=== PATIENT | male | born 1955 | race African-American/Black ===

== ENCOUNTER 2020-11-01 13:12 | Emergency (ER) | payer OTHER, SELFPAY ==
[2020-11-01 13:23] VITALS: BP 160/83; PULSE 80; RESP 20; TEMP 36.9; O2SAT 99
[2020-11-01 13:25] VITALS: BP 160/83; PULSE 75; RESP 20; TEMP 36.9; O2SAT 99
--- NOTE | 2020-11-01 14:17 | ED.EYEPROB ---
HPI - Eye Problem General Chief complaint: Eye Problems Stated complaint: eye injury Source: patient and RN notes reviewed Limitations: no limitations History of Present Illness HPI Narrative: The patient, on minimal medications yet without regular doctor, presents with blurred vision. 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 His eye history is remarkable for that he does not wear contacts or glasses regularly, and he has childhood poor vision in his right eye limited to count fingers . No discharge, photophobia, redness, symptom progression, pain; he also has diet-controlled diabetes and hypertension. Patient advised will be given work release to see eye doctor, before the weekend. Related Data Allergies Allergy/AdvReac Type Severity Reaction Status Date / Time Penicillins Allergy Unknown JERKING Verified 07/20/15 10:27 MOVEMENT Review of Systems Review of Systems: Narrative: General/Constitutional: No weight loss,fever Eyes: N0: Redness,discharge Ears/Nose/Throat: No: Epistaxis,ear discharge Respiratory: Denies: Hemoptysis Gastrointestinal: No Vomiting, Bleeding-rectal Skin: No Lumps, eruption Neurologic: No Focal Weakness,Sz Hematologic: Denies: Petechiae/Purpura Psychiatric: No: Suicida ideationl All Other Systems: Reviewed and Negative PMFSH Comments At time of signature, agree with nursing past medical, surgical, social and family history. There is no relevant family history pertinent to the presenting complaint Exam Narrative: Exam Narrative: General Appearance: Well appearing, Well nourished, No distress EYE-left : Va 20/40 PERRLA ,[id number] normal, EOMI , Lens-early cataract, Normal corneas anterior chamber deep), No conjunctiva injection Ears: External ear normal, Auditory canal normal Nose: Normal nose, Nares clear Mouth/Throat: Normal appearing, Normal lips Neck: Supple, No adenopathy Respiratory: Airway patent, No respiratory distress Skin: Warm, Dry Neurological: A&O x3, CN II-X intact Psychiatric: Normal mood, Normal affect Course Vital Signs Vital signs: Vital Signs Temperature 98.5 F 11/01/20 13:23 Pulse Rate 80 11/01/20 13:23 Respiratory Rate 20 11/01/20 13:23 Blood Pressure 160/83 H 11/01/20 13:23 Pulse Oximetry 99 11/01/20 13:23 Temperature 98.5 F 11/01/20 13:25 Pulse Rate 75 11/01/20 13:25 Respiratory Rate 20 11/01/20 13:25 Blood Pressure 166/95 H 11/01/20 14:39 Pulse Oximetry 99 11/01/20 13:25 MDM - Eye Problem Lab Data Labs: Lab Results 11/01/20 Range/Units 14:24 POC Capillary Glucose 124 H (65-105) mg/dl Discharge Plan Discharge Clinical Impression: Blurred vision, Elevated BP without diagnosis of hypertension, History of diet-controlled diabetes Patient Disposition: Home, Self-Care Condition: Stable Instructions: Hypertension (ED), Blurred Vision (ED) Additional Instructions: See both eye doctor and PMD and to follow-up Prescriptions: New amlodipine [Norvasc] 5 mg tablet 5 mg PO DAILY Qty: 30 RF: 2 bacitracin-polymyxin B 500-10,000 unit/gram ointment 1 applic LEFT EYE HS 7 Days Qty: 3.5 RF: 0 Follow-up/Referrals: UNKNOWN,DOCTOR [Primary Care Provider] -
[2020-11-01 14:27] LABS: Glucose Point of Care 124 mg/dl (65-105)
[2020-11-01 14:39] VITALS: BP 166/95
== END 2020-11-01 14:39 | disposition home or self-care (01) ==
PROVIDERS: Emergency Provider Emergency Medicine
DX: H53.8 Other visual disturbances (principal); I10 Essential (primary) hypertension; E11.9 Type 2 diabetes mellitus without complications; J45.909 Unspecified asthma, uncomplicated
CPT/HCPCS: 82948; 99213; G0463

== ENCOUNTER 2021-06-04 12:36 | Emergency (ER) | payer OTHER, SELFPAY ==
[2021-06-04 12:38] VITALS: BP 205/121; PULSE 117; RESP 16; TEMP 36.4; O2SAT 98
--- NOTE | 2021-06-04 12:50 | ED.GENADULT ---
HPI - General Adult General Chief complaint: Unspecified Stated complaint: HIGH BLOOD PRESSURE Time Seen by Provider: 06/04/21 12:38 Source: patient Mode of arrival: ambulatory Limitations: no limitations History of Present Illness HPI narrative: 65-year-old male presents to [facility] with complaints of elevated blood pressure. Patient reports that he quit taking his blood pressure medication a couple months ago and attempted to eat garlic and stop drinking alcohol. Patient reports that a friend checked his blood pressure last night and it was 206/112. Patient denies headache, dizziness, blurred vision, chest pain, shortness of breath, fever, bodies, chills, nausea or vomiting. Patient is unsure of the name of the blood pressure medication but reports that he did pickle solution maker his blood pressure medication this morning from local pharmacy and restarted it. Patient is requesting a work note to return back to work as he missed work yesterday as he is had difficulty sleeping the past few days Relieving factors: none Exacerbating factors: none Associated symptoms: denies other symptoms Treatments prior to arrival: none Related Data Allergies Allergy/AdvReac Type Severity Reaction Status Date / Time Penicillins Allergy Unknown JERKING Verified 01/29/21 09:32 MOVEMENT Review of Systems Constitutional: Constitutional: Denies fever(s), Denies headache(s) and Denies weakness Eyes: Eyes: Denies change in vision Cardiovascular: Cardiovascular: Denies chest pain, Denies chest pain at rest, Denies chest pain with activity, Denies syncope, Denies rapid heart rate, Denies pedal edema, Denies edema, Denies irregular heart rhythm and Denies claudication Comments: Elevated blood pressure Respiratory: Respiratory: Denies chest congestion, Denies cough and Denies dyspnea Gastrointestinal: Gastrointestinal: Denies abdominal pain Integumentary/Breasts: Skin/Breast: Denies rash Neurologic: Denies vertigo and Denies dizziness Psychiatric: Psychiatric: Denies anxiety and Denies depression Hematologic/Lymphatic: Hematologic/Lymphatic: Denies lymphadenopathy [facility] Past Medical History Medical History HTN (hypertension) Family History Family History Father Family history of coronary artery disease Social History Social History Smoking status: Former smoker Tobacco type: cigars Second hand tobacco smoke exposure: Yes Smoking end date: 04/27/09 Alcohol intake: never Substance use: never Substance use type: does not use Gender identity (if verbalized by the patient): Male Sexual Orientation (if Verbalized by the Patient): Straight or Heterosexual Comments At time of signature, I agree with nursing past medical, surgical, social and family history. There is no relevant family history pertinent to the presenting complaint. Exam Const: General: cooperative, healthy appearing, comfortable, no acute distress, well developed, alert and awake HENMT: Head: normal to inspection Ears: hearing grossly normal bilaterally General nose exam: Normal external nose present Face and sinus: normal facial exam Eyes: General: appearance normal, both eyes and all related structures Neck: Neck: normal visual inspection and full ROM Resp: Effort & Inspection: normal respiratory effort, able to speak in complete sentences, no audible wheezes and no cough Cardio: Jugular venous distension: no JVD Rate: tachycardic Rhythm: regular rhythm Skin: General skin exam: normal color and no rashes or lesions noted Neuro: General: oriented to person, oriented to place, oriented to time, patient oriented x3, gait normal and moves all extremities Extrem: General: normal to inspection and full ROM Psych: Appearance: grossly normal and well kempt Speech and movement: Normal speech
== END 2021-06-04 12:58 | disposition short-term general hospital (02) ==
PROVIDERS: Emergency Provider Nurse Practitioner Family; PCP Family Medicine
DX: I10 Essential (primary) hypertension (principal); Z87.891 Personal history of nicotine dependence
CPT/HCPCS: 99212; G0463

== ENCOUNTER 2021-06-04 14:09 | Emergency (ER) | payer OTHER, SELFPAY ==
[2021-06-04] VITALS (19 sets, daily range): BP systolic 150–219; BP diastolic 93–123; PULSE 76–123; RESP 16–27; TEMP 36.7; O2SAT 99–100
--- NOTE | ~2021-06-04 | CT_ITS ---
EXAMINATION:CT diagnostic chest wo con DATE: 06/04/2021 17:15 INDICATION: Lung nodule. TECHNIQUE: Computed tomography (CT) of the chest was performed without intravenous contrast. Automate d exposure control and iterative reconstruction technique were employed. The dose-length product (DLP ) was 277.88 mGy-cm. COMPARISON: Chest single view 06/04/2021 FINDINGS: The lungs demonstrate mild atelectasis. There is mild scarring at the lung apices. There is a 4 mm nodule at minor fissure, likely benign. There is a 2 mm nodule in left lower lobe, likely mynor ign. No pleural effusion. The heart size is normal. No pericardial effusion. There are cysts in the l iver measuring up to 6 mm. There is severe cervical and thoracic spondylosis. There is levoscoliosis of upper thoracic spine. IMPRESSION: 1. No evidence of malignancy. Reviewed, dictated and finalized at location A. K SALES REPRESENTATIVE
--- NOTE | ~2021-06-04 | XR_ITS ---
EXAMINATION: XR chest 1V portable DATE: 06/04/2021 16:57 INDICATION: Chest pain. TECHNIQUE: A single frontal view of the chest was obtained. COMPARISON: Chest 2 views 05/10/2014 FINDINGS: There is a 1.5 cm nodule in right lower lung zone. There is a 1.4 cm nodule in right upper lung zone. No pleural effusion or pneumothorax. The heart size is normal. IMPRESSION: 1. New pulmonary nodules suspicious for malignancy. Noncontrast chest CT is recommended. I called thi s result to Dr. Gomez. Reviewed, dictated and finalized at location A. OMER ENERGY SPECIALIST IMPRESSION: 1. New pulmonary nodules suspicious for malignancy. Noncontrast chest CT is rec ommended. I called this result to Dr. Gomez.
--- NOTE | 2021-06-04 15:13 | ECG_ITS ---
Measurements Intervals Laura Rate: 111 P: 62 FL: 152 QRS: 59 QRSD: 85 T: 51 QT: 313 QTc: 426 Interpretive Statements SINUS TACHYCARDIA VOLTAGE CRITERIA FOR LVH MINIMAL Q WAVES- INFERIOR LEADS BORDERLINE T WAVE ABNORMALITY- LATERAL LEADS ABNORMAL ECG Electronically Signed On 06-04-2021 16:43:01 DIRECT SUPPORT STAFF by Abdiaziz Wray D.O.
--- NOTE | 2021-06-04 15:25 | ED.GENADULT ---
HPI - General Adult General Chief complaint: Recheck/Abnormal Lab/Rx Stated complaint: High BP Time Seen by Provider: 06/04/21 15:13 Source: RN notes reviewed History of Present Illness HPI narrative: Patient presents emergency department from urgent care for hypertension. Patient states he has a history of hypertension is post be on amlodipine he states he been off his medicine for the past 2 months however he filled it this morning and did take 1 this morning states he been at a friend's house and he checks his blood pressure on their machine and a reading 260/120 and he gone to the urgent care at that time because of this states he has had no headaches dizziness chest pain shortness of breath nausea vomiting numbness tingling or any other symptoms Related Data Allergies Allergy/AdvReac Type Severity Reaction Status Date / Time Penicillins Allergy Unknown JERKING Verified 06/04/21 15:07 MOVEMENT Review of Systems Review of Systems: Gen.: Denies fevers or chills Eyes: Denies eye pain or visual change ENT: Denies congestion Respiratory: Denies shortness of breath or cough CV: Denies chest pain or palpitations GI: Denies abdominal pain nausea, emesis or diarrhea Musculoskeletal: Denies back pain or muscle pain Neuro: Denies numbness, tingling, weakness or focal weakness Skin: Denies rash Except as documented, all other systems reviewed and negative [facility] Past Medical History Medical History HTN (hypertension) Family History Family History Father Family history of coronary artery disease Social History Social History Smoking status: Former smoker Tobacco type: cigars Second hand tobacco smoke exposure: Yes Smoking end date: 04/27/09 Alcohol intake: never Substance use: never Substance use type: does not use Gender identity (if verbalized by the patient): Male Sexual Orientation (if Verbalized by the Patient): Straight or Heterosexual Exam Narrative: APPEARANCE: No acute distress, nontoxic, resting in bed EYES: EOMI HEENT: Normocephalic, atraumatic, OMM RESPIRATORY: No respiratory distress Clear to auscultation bilaterally with no rhonchi wheezing or rales. CARDIOVASCULAR: Regular rate and rhythm without murmurs rubs or gallops. ABDOMINAL: Soft, nontender, nondistended, no rebound or guarding MUSCULOSKELETAl: Moves all extremities. No clubbing, cyanosis or edema. NEURO: Awake and alert. Following commands, speech normal, no focal deficits SKIN:: Warm, dry. No rashes lesions or abrasions PSYCHIATRIC: Normal affect/mood, Course Course Emergency Course: Called discussed with Dr. Granados. At this time request patient have metoprolol 25 mg twice daily added to current amlodipine dose agrees with plan for discharge to follow-up as an outpatient Discussed with patient results of workup and diagnosis. Discussed need for follow-up with primary care, proper use of medication, and reasons to return to the emergency department. Patient understands and agrees to current treatment plan Vital Signs Vital signs: Vital Signs Temperature 98.1 F 06/04/21 14:17 Pulse Rate 122 H 06/04/21 14:17 Respiratory Rate 16 06/04/21 14:17 Blood Pressure 219/109 H 06/04/21 14:17 Pulse Oximetry 100 06/04/21 14:17 Temperature 98.1 F 06/04/21 14:17 Pulse Rate 101 H 06/04/21 18:46 Respiratory Rate 20 06/04/21 18:46 Blood Pressure 212/123 H 06/04/21 18:46 Pulse Oximetry 100 06/04/21 18:46 Medical Decision Making Vital Signs Vital Signs: Vital Signs Temperature 98.1 F 06/04/21 14:17 Pulse Rate 122 H 06/04/21 14:17 Respiratory Rate 16 06/04/21 14:17 Blood Pressure 219/109 H 06/04/21 14:17 Pulse Oximetry 100 06/04/21 14:17 Temperature 98.1 F 06/04/21 14:17 Pulse Rate 101 H 06/04/21 18:46 Respiratory Ra
[2021-06-04] MEDS: SODIUM CHLORIDE 0.9% IV 1,000 ML 999 ML IV CONT (16:46)
[2021-06-04 16:59] LABS: Basophils Absolute Auto 0.1 K/mm3 (0.0-0.1); Basophils Percent Auto 0.9 % (0.2-1.2); Eosinophils Percent Auto 0.2 % (0-4.4); Hematocrit 49.2 % (42.0-52.0); Hemoglobin 16.7 g/dL (14.0-18.0); Immature Granulocyte Absolute 0.02 K/mm3 (0.00-0.031); Immature Granulocyte Percent A 0.2 % (0-0.5); Lymphocytes Absolute Auto 1.26 K/mm3 (0.9-3.2); Lymphocytes Percent Auto 15.7 % (18.3-44.2); Mean Corpuscular HGB Conc 33.9 g/dl (32-36); Mean Corpuscular Hemoglobin 32.2 pg (26-34); Mean Platelet Volume 10.5 fl (7.4-10.4); Monocytes Absolute Auto 0.8 K/mm3 (0.1-0.6); Monocytes Percent Auto 10.5 % (2.6-8.5); Neutrophils Absolute Auto 5.8 K/mm3 (1.3-6.7); Neutrophils Percent Auto 72.5 % (45.5-73.1); Platelet Count Result 239 k/mm3 (150-375); Red Blood Count 5.18 M/mm3 (4.6-6.20); Red Cell Distribution Width 13.8 % (11.5-14.5)
[2021-06-04 17:03] LABS: Add Urine Microscopic? YES; Appearance Urine Clear (Clear); Bilirubin Urine Negative (Negative); Blood Urine Negative (Negative); Color Urine Colorless (Yellow); Glucose Urine UA 1+ mg/dL (Negative); Ketones Urine Negative (Negative); Leukocyte Esterase Ur Negative LEU/UL (Negative); Mucus Urine Rare /lpf; Nitrate Urine Negative (Negative); Protein Urine Negative (Negative); RBC Urine 0-2 /hpf (0-2); Urobilinogen Urine Negative mg/dL (<2.0); WBC Urine 0-3 /hpf
[2021-06-04 17:31] LABS: Specific Grav Ur 1.002 (1.001-1.035)
[2021-06-04 18:12] LABS: Alanine Aminotransferase 21 U/L (4-50); Albumin Level 4.4 g/dL (3.5-5.1); Alkaline Phosphatase 90 U/L (38-126); Anion Gap 9 mmol/L (8-16); Aspartate Amino Transferase 52 U/L (17-59); Bilirubin,Total 0.6 mg/dL (0.2-1.3); Blood Urea Nitrogen 11 mg/dL (9-20); Calcium 9.1 mg/dL (8.4-10.2); Carbon Dioxide 27 mmol/L (22-30); Chloride 100 mmol/L (98-107); Estimated CRCL calculation 79 ml/min; Estimated Glomerular Filt Rate > 60; Glucose 94 mg/dL (65-110); Potassium 3.8 mmol/L (3.4-5.0); Sodium 136 mmol/L (137-145)
[2021-06-04] MEDS: METOPROLOL TARTRATE 25 MG TABLET PO (18:46)
== END 2021-06-04 20:11 | disposition home or self-care (01) ==
PROVIDERS: Emergency Provider Emergency Medicine; PCP Family Medicine
DX: I10 Essential (primary) hypertension (principal); Z87.891 Personal history of nicotine dependence; R00.0 Tachycardia, unspecified; R94.31 Abnormal electrocardiogram [ECG] [EKG]; R91.8 Other nonspecific abnormal finding of lung field
CPT/HCPCS: 36415; 71045; 71250; 80053; 81001; 85025; 93005; 96360; 99284; A9270; J7030

== ENCOUNTER 2021-07-18 14:05 | Emergency (ER) | payer OTHER, SELFPAY ==
[2021-07-18 14:12] VITALS: BP 159/93; PULSE 105; RESP 24; TEMP 37.5; O2SAT 96
--- NOTE | 2021-07-18 14:12 | ED.GENADULT ---
HPI - General Adult General Chief complaint: Recheck/Abnormal Lab/Rx Stated complaint: High blood pressure Time Seen by Provider: 07/18/21 14:16 Mode of arrival: ambulatory Limitations: no limitations History of Present Illness HPI narrative: 65-year-old male presents with concern for medication refill. Reports he is out of his blood pressure medications. Reports he was seen here in May for high blood pressure and went to the ER. Reports he has been out of his blood pressure medication for approximately 3 days. He reports he needs to follow-up with his primary care doctor. He does have a primary care doctor. He denies any symptoms or concerns at this time. Denies headache, confusion, weakness to any extremity, chest pain, shortness of breath, swelling. MD complaint: Medication refill Related Data Allergies Allergy/AdvReac Type Severity Reaction Status Date / Time Penicillins Allergy Unknown JERKING Verified 07/18/21 14:11 MOVEMENT Review of Systems Review of Systems: CONSTITUTIONAL: Denies malaise, chills, sweats, or fever. CARDIOVASCULAR: Denies chest pain, palpitations, or edema. RESPIRATORY: Denies cough or dyspnea. NEUROLOGIC: Denies numbness, weakness, or headache. All systems reviewed & are unremarkable except as noted in HPI and below PMFSH Past Medical History Medical History HTN (hypertension) Family History Family History Father Family history of coronary artery disease Social History Social History Smoking status: Former smoker Tobacco type: cigars Second hand tobacco smoke exposure: Yes Smoking end date: 04/27/09 Alcohol intake: never Substance use: never Substance use type: does not use Gender identity (if verbalized by the patient): Male Sexual Orientation (if Verbalized by the Patient): Straight or Heterosexual Comments At time of signature, agree with nursing past medical, surgical, social and family history. There is no relevant family history pertinent to the presenting complaint Exam Narrative: GENERAL: Well-appearing, well-nourished, and in no acute distress. HEAD: Normocephalic EYES: PERRLA, sclera clear ENT: Mucous membranes moist. NECK: Supple. CHEST: No respiratory distress. Speaks in full sentences. HEART: Regular rate and rhythm. SKIN: Warm, dry, no visible rash. NEURO: Alert and oriented x3. PSYCH: Normal mood and affect Course Course Emergency Course: Patient is aware of diagnosis, understands and agrees to treatment plan. Anticipatory guidance given. Patient agrees to follow-up as directed and is aware of reasons to seek care at the emergency department. Portions of this record may have been created with voice recognition software Level of Care: Express Care Visit Vital Signs Vital signs: Reviewed. Medical Decision Making MDM Narrative Medical decision making narrative: Exam findings show no acute concerns or changes; patient is non-toxic appearing and is in no distress. Patient is appropriate for outpatient treatment and follow-up. Critical Care Time Critical Care Time Critical Care Time: No Discharge Plan Discharge Clinical Impression: Encounter for medication refill Patient Disposition: Home, Self-Care Condition: Stable Instructions: Hypertension (ED) Additional Instructions: You have an appointment with Dr. Markham on July 30. Please call his office to confirm what time the appointment is. Your blood pressure medication has been refilled pending that appointment, you need to follow-up with Dr. Amaya for future refills of your medicine. You have any urgent concerns or new symptoms please go to the emerge room. Prescriptions: New amlodipine 5 mg tablet 5 mg PO DAILY Qty: 30 RF: 0 metoprolol tartrate 25 mg tablet 25 mg PO BID Qty: 60 RF: 0
== END 2021-07-18 14:42 | disposition home or self-care (01) ==
PROVIDERS: Emergency Provider Nurse Practitioner
DX: I10 Essential (primary) hypertension (principal); Z87.891 Personal history of nicotine dependence
CPT/HCPCS: 99211; G0463

== ENCOUNTER 2021-08-29 10:07 | Emergency (ER) | payer OTHER, SELFPAY ==
[2021-08-29 10:13] VITALS: BP 173/94; PULSE 113; RESP 20; TEMP 36.4; O2SAT 97
--- NOTE | 2021-08-29 10:13 | ED.URI ---
HPI - URI/Sore Throat General Chief Complaint: Upper Respiratory Infection Stated Complaint: cough,high blood pressure Time Seen by Provider: 08/29/21 10:15 Source: patient, RN notes reviewed and old records reviewed Mode of arrival: ambulatory Limitations: no limitations History of Present Illness HPI Narrative: 65-year-old male who presents to [facility] care with complaints of some cough and nasal drainage lately, denies any fevers, chills or sweats. Patient reports that he has not noted any shortness of breath or any wheezing and has not taken anything over the counter for his complaint. Patient reports that he missed his last appointment with his PCP and he is of need for his blood pressure medication refill. Patient reports that he doesn't have any body aches, has had COVID vaccinations and Booster. Patient reports that he does not use tobacco or use any street drugs,admits to alcohol consumption 3X week. MD elicited complaint: cough and other (needs hypertension medication refill) Related Data Allergies Allergy/AdvReac Type Severity Reaction Status Date / Time Penicillins Allergy Unknown JERKING Verified 08/29/21 10:12 MOVEMENT Review of Systems Review of Systems: CONSTITUTIONAL: Denies fever, chills, or sweats. EYES: Denies visual changes, redness, or discharge. ENT: positive for rhinorrhea, congestion, no sore throat, or otalgia. CARDIOVASCULAR: Denies chest pain, palpitations, or edema. RESPIRATORY: Positive for cough denies any dyspnea, positive for history of asthma GASTROINTESTINAL: Denies abdominal pain, nausea, vomiting, or diarrhea. GENITOURINARY: Denies dysuria or hematuria. SKIN: Denies rash or itching. MUSCULOSKELETAL: Denies back pain, joint pain, or myalgia. NEUROLOGIC: Denies headache, numbness, or weakness. PSYCHIATRIC: Denies anxiety or depression. All systems reviewed & are unremarkable except as noted in HPI and below [facility] Past Medical History Medical History (Updated 08/29/21 @ 13:26 by Janice Quezada NP) Asthma HTN (hypertension) Family History Family History Father Family history of coronary artery disease Social History Social History (Updated 08/29/21 @ 13:26 by Janice Quezada NP) Smoking status: Former smoker Tobacco type: cigars Second hand tobacco smoke exposure: Yes Smoking end date: 04/27/09 Alcohol intake: current Alcohol use details: 3x per week Substance use: never Substance use type: does not use Gender identity (if verbalized by the patient): Male Sexual Orientation (if Verbalized by the Patient): Straight or Heterosexual Comments At time of signature, agree with nursing past medical, surgical, social and family history. There is no relevant family history pertinent to the presenting complaint Exam Narrative: GENERAL: Well-appearing, well-nourished, and in no acute distress. HEAD: Normocephalic, atraumatic. EYES: PERRLA and EOMI. ENT: Nares red with clear rhinorrhea no epistaxis. Mucous membranes moist.TM's normal with good light reflex,Throat with mild redness no lesions or exudates or any tonsil enlargement. NECK: Supple.no lymphadenopathy CHEST: Decreased to auscultation. No respiratory distress.dry cough noted, SAO2 97% on room air. HEART: Regular rate and rhythm. No murmur heard. Normal peripheral pulses. ABDOMEN: Soft, nontender, nondistended, normal active bowel sounds. EXTREMITIES: Normal range of motion. No edema. SKIN: Warm, dry, no rash. NEURO: No focal deficits. Alert and oriented x3. Course Course Level of Care: Express Care Visit Vital Signs Vital signs: Vital Signs Temperature 36.4 C 08/29/21 10:13 Pulse Rate 113 H 08/29/21 10:13 Respiratory Rate 08/29/21 10:13 Blood Pressure 173/94 H 08/29/21 10:13 Pulse Oximetry 97 08/29/21 10:13 Temperature 36.4 C 08/29/21 10:13 Pulse Rate 113 H 08/29/21 10:13 Respiratory Rate 08/29/21 10:13 Bloo
== END 2021-08-29 10:54 | disposition home or self-care (01) ==
PROVIDERS: Emergency Provider Registered Nurse; PCP Family Medicine
DX: J06.9 Acute upper respiratory infection, unspecified (principal); I10 Essential (primary) hypertension; J45.909 Unspecified asthma, uncomplicated; Z76.0 Encounter for issue of repeat prescription; Z87.891 Personal history of nicotine dependence
CPT/HCPCS: 99213; G0463

== ENCOUNTER 2021-09-16 12:49 | Emergency (ER) | payer OTHER, SELFPAY ==
--- NOTE | ~2021-09-16 | XR_ITS ---
EXAMINATION: XR knee RT 3V DATE: 09/16/2021 13:40 INDICATION: Right knee pain. Fall. TECHNIQUE: 3 views of right knee were obtained. COMPARISON: Right knee radiographs 11/16/2010 FINDINGS: Bone alignment is normal. No fracture. There is mild tricompartmental osteoarthritis. No kn ee joint effusion. IMPRESSION: 1. Mild right knee osteoarthritis. Reviewed, dictated and finalized at location A.
[2021-09-16 13:03] VITALS: BP 121/76; PULSE 68; RESP 16; TEMP 35.8; O2SAT 100
--- NOTE | 2021-09-16 13:34 | ED.LOWEXIN ---
HPI - Extremity Injury (Lower) General Chief Complaint: Extremity Injury, Lower Stated Complaint: fall at work, Time Seen by Provider: 09/16/21 13:50 Source: patient and RN notes reviewed Mode of arrival: ambulatory Limitations: no limitations History of Present Illness HPI Narrative: 65-year-old male presents with concern for knee pain after falling at work on September 10. He reports right knee pain with palpation, denies pain worsening with weightbearing. Denies pain worsening with range of motion. He denies swelling, open skin, bruising. He denies any history of knee pain or injury. He denies intervention. He would like to be cleared to return back to work. MD complaint: knee injury Related Data Allergies Allergy/AdvReac Type Severity Reaction Status Date / Time Penicillins Allergy Unknown JERKING Verified 09/16/21 13:16 MOVEMENT Review of Systems Review of Systems: CONSTITUTIONAL: Denies malaise, chills, sweats, or fever. SKIN: Denies rash or itching, open skin, laceration, abrasion, redness, warmth, swelling. MUSCULOSKELETAL: Reports left knee tenderness NEUROLOGIC: Denies numbness, weakness All systems reviewed & are unremarkable except as noted in HPI and below PMFSH Past Medical History Medical History (Updated 09/16/21 @ 14:02 by Pao Lancaster NP) Asthma HTN (hypertension) Family History Family History Father Family history of coronary artery disease Social History Social History (Updated 08/29/21 @ 13:26 by Janice Quezada NP) Smoking status: Former smoker Tobacco type: cigars Second hand tobacco smoke exposure: Yes Smoking end date: 04/27/09 Alcohol intake: current Alcohol use details: 3x per week Substance use: never Substance use type: does not use Gender identity (if verbalized by the patient): Male Sexual Orientation (if Verbalized by the Patient): Straight or Heterosexual Comments At time of signature, agree with nursing past medical, surgical, social and family history. There is no relevant family history pertinent to the presenting complaint Exam Narrative: GENERAL: Well-appearing, well-nourished, and in no acute distress. HEAD: Normocephalic, atraumatic. EYES: PERRLA, conjunctivae clear NECK: Supple. CHEST: Speaks in full sentences. No respiratory distress. HEART: Regular rate and rhythm. Normal and equal peripheral pulses. EXTREMITIES: Left knee, lower leg have normal strength and sensation, normal range of motion. No edema or ecchymosis. 5/5 strength with knee flexion and extension. Normal sensation with sensitivity to light touch and pain. Mild medial knee tenderness. No open wounds, no skin tenting, no devitalized tissue or atrophy, no trophic changes, no obvious deformity, alignment normal, nearby joints and structures intact. Distal pulses palpable and equal bilaterally, skin warm, dry, pink. Capillary refill less than 3 seconds. SKIN: Warm, dry, no rash. NEURO: Alert and oriented x3. PSYCH: Normal mood and affect Course Course Emergency Course: Patient is aware of diagnosis, understands and agrees to treatment plan. Anticipatory guidance given. Patient agrees to follow-up as directed and is aware of reasons to seek care at the emergency department. Portions of this record may have been created with voice recognition software Level of Care: Express Care Visit Vital Signs Vital signs: Vital Signs Temperature 96.5 F L 09/16/21 13:03 Pulse Rate 68 09/16/21 13:03 Respiratory Rate 16 09/16/21 13:03 Blood Pressure 121/76 09/16/21 13:03 Pulse Oximetry 100 09/16/21 13:03 Temperature 96.5 F L 09/16/21 13:03 Pulse Rate 68 09/16/21 13:03 Respiratory Rate 16 09/16/21 13:03 Blood Pressure 121/76 09/16/21 13:03 Pulse Oximetry 100 09/16/21 13:03 Reviewed. MDM - Extremity Injury (Lower) MDM Narrative Medical decision making narrative: Patients injury and pain is co
== END 2021-09-16 14:11 | disposition home or self-care (01) ==
PROVIDERS: Emergency Provider Nurse Practitioner; PCP Family Medicine
DX: M25.561 Pain in right knee (principal); Z87.891 Personal history of nicotine dependence; J45.909 Unspecified asthma, uncomplicated; I10 Essential (primary) hypertension
CPT/HCPCS: 73562; 99213; G0463

== ENCOUNTER 2022-04-16 10:14 | Outpatient (CLI) | payer OTHER, SELFPAY ==
--- NOTE | ~2022-04-16 | XR_ITS ---
XR chest 2V DATE: 04/16/2022 10:32 INDICATION: Cough, productive. No fever. TECHNIQUE: PA and lateral chest COMPARISON: June 04, 2021 CT chest June 04, 2021 portable AP chest FINDINGS: Normal heart size. Mild aortic tortuosity. No hilar or mediastinal enlargement. No pulmonary infiltrate or consolidation, pleural effusion or pulmonary vascular congestion or pneum othorax. Scoliosis and degenerative spurring of the thoracic spine. IMPRESSION: No active cardiopulmonary disease Reviewed, dictated and finalized at location B. INE ROOM ATTENDANT
== END 2022-04-16 10:15 | disposition home or self-care (01) ==
PROVIDERS: PCP Family Medicine; Visit Provider Physician Assistant
DX: R05.9 Cough, unspecified (principal)
CPT/HCPCS: 71046

== ENCOUNTER 2022-05-30 16:40 | Emergency (ER) | payer OTHER, SELFPAY ==
--- NOTE | ~2022-05-30 | XR_ITS ---
EXAMINATION: XR knee RT 3V DATE: 05/30/2022 17:41 INDICATION: Right knee pain. TECHNIQUE: 3 views of right knee were obtained. COMPARISON: Right knee radiographs 09/16/2021 FINDINGS: Bone alignment is normal. No fracture. There is mild tricompartmental osteoarthritis. No kn ee joint effusion. IMPRESSION: 1. Mild right knee osteoarthritis. Reviewed, dictated and finalized at location A. WALKER
[2022-05-30 16:45] VITALS: BP 130/70; PULSE 63; RESP 19; TEMP 36.2; O2SAT 99
--- NOTE | 2022-05-30 20:58 | ED.LOWEXIN ---
HPI - Extremity Injury (Lower) General Chief Complaint: Extremity Injury, Lower Stated Complaint: right knee pain Time Seen by Provider: 05/30/22 19:17 Source: patient Mode of arrival: ambulatory Limitations: no limitations History of Present Illness HPI Narrative: Patient is a 66-year-old male who presents the ED with report of right knee pain. Patient reports having pain for the last week and a half. He denies any specific injury, but states he may have twisted it when he accidentally fell off the couch while sleeping. Pain worse medially. He has been using ice and heat with minimal relief. Overall he states pain has improved somewhat over the last week, but he wanted to be evaluated due to missing work. Denies any numbness, tingling, weakness, fevers, calf pain or swelling. Related Data Allergies Allergy/AdvReac Type Severity Reaction Status Date / Time Penicillins Allergy Unknown JERKING Verified 05/30/22 19:42 MOVEMENT Review of Systems Review of Systems: CONSTITUTIONAL: Denies fever, chills, or sweats. SKIN: Denies rash or itching. MUSCULOSKELETAL: See HPI. NEUROLOGIC: Denies tingling, numbness, or weakness. All systems reviewed & are unremarkable except as noted in HPI and below PMFSH Past Medical History Medical History Asthma HTN (hypertension) IFG (impaired fasting glucose) Family History Family History Father Family history of coronary artery disease Social History Social History Smoking status: Former smoker Tobacco type: cigars Second hand tobacco smoke exposure: Yes Smoking end date: 04/27/09 Alcohol intake: current Alcohol use details: 3x per week Substance use: never Substance use type: does not use Living arrangements: with family Occupation/Education: occupation Gender identity (if verbalized by the patient): Male Sexual Orientation (if Verbalized by the Patient): Straight or Heterosexual Exam Narrative: GENERAL: Well appearing, obese, non-toxic, in no acute distress. HEAD: Normocephalic, atraumatic. NECK: Supple. No adenopathy, no masses. RESPIRATORY: Airway patent, respirations nonlabored. CARDIOVASCULAR: Regular rate and rhythm without murmurs, rubs, or gallops. Pedal pulses 2+ and equal bilaterally. MUSCULOSKELETAL: Mild limited flexion range of motion of right knee due to discomfort. Full extension. Mild tenderness along medial joint line of right knee. Minimal swelling noted to the anterior right knee. No warmth or erythema overlying knee. No calf tenderness or swelling. SKIN: Warm, dry, normal color. No rashes. NEURO: A&O X3. Speech clear. Cranial nerves II-XII grossly intact. Steady gait. No ataxic movements. PSYCHIATRIC: Appropriate mood and affect. Normal interaction. Course Vital Signs Vital signs: Vital Signs Temperature 97.2 F L 05/30/22 16:45 Pulse Rate 63 05/30/22 16:45 Respiratory Rate 19 05/30/22 16:45 Blood Pressure 130/70 05/30/22 16:45 Pulse Oximetry 99 05/30/22 16:45 Oxygen Delivery Room Air 05/30/22 16:45 Temperature 97.2 F L 05/30/22 16:45 Pulse Rate 63 05/30/22 16:45 Respiratory Rate 19 05/30/22 16:45 Blood Pressure 130/70 05/30/22 16:45 Pulse Oximetry 99 05/30/22 16:45 Oxygen Delivery Room Air 05/30/22 16:45 MDM - Extremity Injury (Lower) MDM Narrative Medical decision making narrative: Patient's injury is consistent with musculoskeletal etiology. No signs of neurologic or vascular compromise on physical examination. Good pedal pulses. No calf tenderness or swelling. Low suspicion for DVT. Compartments are soft without signs of compartment syndrome. XR of right knee without fracture, dislocation, joint effusion. Showing osteoarthritis. Pain is consistent with exam and injury. Patient is felt to be
== END 2022-05-30 21:17 | disposition home or self-care (01) ==
PROVIDERS: Emergency Provider Physician Assistant; PCP Family Medicine
DX: S83.91XA Sprain of unspecified site of right knee, initial encounter (principal); I10 Essential (primary) hypertension; J45.909 Unspecified asthma, uncomplicated; Z87.891 Personal history of nicotine dependence; M17.11 Unilateral primary osteoarthritis, right knee; X58.XXXA Exposure to other specified factors, initial encounter
CPT/HCPCS: 73562; 99283

== ENCOUNTER → 2022-09-15 11:59 | Outpatient (CLI) | payer OTHER, SELFPAY ==
--- NOTE | ~2022-09-15 | XR_ITS ---
EXAMINATION: XR chest 2V 09/15/2022 12:12 INDICATION: Cough PROCEDURE: 2 view chest COMPARISON: Comparison to multiple prior studies sequentially, with oldest reviewed study dated 01/25. FINDINGS: The lungs are clear. The cardiomediastinal silhouette is within normal limits. There are no pleural effusions. There is no pneumothorax suspected. IMPRESSION: 1: NO ACUTE CARDIOPULMONARY DISEASE. Reviewed, dictated and finalized at location B.
== END ==
PROVIDERS: PCP Family Medicine; Visit Provider Family Medicine
DX: R05.9 Cough, unspecified (principal)
CPT/HCPCS: 71046

== ENCOUNTER 2024-09-13 16:18 | Emergency (ER) | payer OTHER, SELFPAY ==
--- NOTE | 2024-09-13 16:28 | ED.UPPEXIN ---
HPI - Extremity Injury (Upper) General Chief Complaint: Extremity Injury, Upper Stated Complaint: Injured Left Arm Time Seen by Provider: 09/13/24 16:35 Source: patient and RN notes reviewed Mode of arrival: ambulatory Limitations: no limitations History of Present Illness HPI narrative: 68-year-old male presents concern for left shoulder injury. Reports 1 week ago he was tossing a trash bag into a trash can when he hurt his shoulder. He reports no pain at rest but reports pain with abduction or flexion of the shoulder. He reports decreased range of motion with decreased ability to abduct the shoulder. He denies tenderness. He denies chest pain or shortness of breath. He took Tylenol without relief MD complaint: injury to: left and shoulder Related Data Allergies Allergy/AdvReac Type Severity Reaction Status Date / Time Penicillins Allergy Unknown JERKING Verified 09/13/24 16:43 MOVEMENT Review of Systems Review of Systems: CONSTITUTIONAL: Denies malaise, chills, sweats, or fever. SKIN: Denies rash or itching, open skin, laceration, abrasion, redness, warmth, swelling. MUSCULOSKELETAL: Reports left shoulder pain NEUROLOGIC: Denies numbness, weakness All systems reviewed & are unremarkable except as noted in HPI and below PMFSH Past Medical History Medical History IFG (impaired fasting glucose) Asthma HTN (hypertension) Family History Family History Father Family history of coronary artery disease Social History Social History (Updated 06/17/24 @ 14:36 by Mell Davidson) Smoking status: Former smoker Tobacco type: cigars Second hand tobacco smoke exposure: Yes Smoking end date: 04/27/09 Alcohol intake: current Alcohol use details: 3x per week Substance use: never Substance use type: does not use Do You Feel Safe in your Home?: Yes Lack of Transportation: No Lack of Food: Never True Current Housing: I Have Housing Concerned About Future Housing: No Difficulty Paying Gas/Electric Bills: No Difficulty Paying for Meds: No Currently Unemployed: No Education: Don't Know Difficulty w/ Childcare or Family Care: No Living arrangements: with family Occupation/Education: occupation Gender identity (if verbalized by the patient): Male Sexual Orientation (if Verbalized by the Patient): Straight or Heterosexual Comments At time of signature, agree with nursing past medical, surgical, social and family history. There is no relevant family history pertinent to the presenting complaint Exam Narrative: GENERAL: Well-appearing, well-nourished, and in no acute distress. HEAD: Normocephalic, atraumatic. EYES: PERRLA, conjunctivae clear NECK: Supple. CHEST: Speaks in full sentences. No respiratory distress. HEART: Regular rate and rhythm. Normal and equal peripheral pulses. EXTREMITIES: Left shoulder has grossly normal sensation, limited normal range of motion. No edema or ecchymosis. 3/5 strength with left shoulder abduction. Normal sensation with sensitivity to light touch and pain. No point tenderness. No open wounds, no skin tenting, no devitalized tissue or atrophy, no trophic changes, no obvious deformity, alignment normal, nearby joints and structures intact. Distal pulses palpable and equal bilaterally, skin warm, dry, pink. Capillary refill less than 3 seconds. SKIN: Warm, dry, no rash. NEURO: Alert and oriented x3. PSYCH: Normal mood and affect Course Course Emergency Course: Patient is aware of diagnosis, understands and agrees to treatment plan. Anticipatory guidance given. Patient agrees to follow-up as directed and is aware of reasons to seek care at the emergency department. Portions of this record may have been created with voice recognition software Level of Care: Express Care Visit Vital Signs Vital signs: Reviewed. Critical Care Time Critical Care Time Critical Care Time: No Discharge Plan Discharge Clinical Impression: Injury of shoulder, left Patient Disposition: Home Condition: Stable Instructions: Shoulder Sprain (ED) Additional Instructions: Avoid activities that cause pain until the pain subsides. Ice to the area 20-30 minutes 4-6 times a day Wear sling Tylenol for lesser pain Ibuprofen regularly for the next 2-3 days for the inflammation Follow up with Orthopedics for further evaluation If the condition worsens with numbness, tingling, decrease sensation with weakness seek treatment in the emergency room immediately. Patient Language: [place] Citizen Prescriptions: New naproxen 500 mg tablet 500 mg PO BID PRN (Reason: pain) Qty: 20 0RF No Action sildenafil [Viagra] 50 mg tablet 50 mg PO DAILY PRN (Reason: sexual activity) Qty: 30 2RF Rx Instructions: administer 30 minutes to 4 hours before activity amlodipine 10 mg tablet 10 mg PO DAILY Qty: 90 2RF losartan 50 mg tablet 50 mg PO DAILY Qty: 90 1RF Follow-up/Referrals: Rufus Fitzgerald MD [Physician] - PHYSICIAN,REHABILITATION SPECIALIST [Primary Care Provider] - Stand Alone Forms: Work/School Release IP Time of Disposition: 16:43
[2024-09-13 16:29] VITALS: BP 164/83; PULSE 102; RESP 16; TEMP 36.1; O2SAT 100
== END 2024-09-13 16:48 | disposition home or self-care (01) ==
PROVIDERS: Emergency Provider Nurse Practitioner
DX: S49.92XA Unspecified injury of left shoulder and upper arm, initial encounter (principal); X50.0XXA Overexertion from strenuous movement or load, initial encounter; I10 Essential (primary) hypertension; J45.909 Unspecified asthma, uncomplicated; R73.01 Impaired fasting glucose; Z87.891 Personal history of nicotine dependence
CPT/HCPCS: 99213; A4565; G0463

== ENCOUNTER 2024-09-20 11:06 | Outpatient (CLI) | payer OTHER, SELFPAY ==
--- NOTE | ~2024-09-20 | XR_ITS ---
Left Shoulder Technique: AP and scapular Y views were obtained. Clinical History: Pain Findings: No fracture or dislocation is seen. Osseous alignment is anatomic. The glenohumeral joint i s intact. There is moderate to advanced AC joint degenerative change. 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 Soft tis sues are unremarkable. Impression: No acute abnormality evident. 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 Reviewed, dictated and finalized at location . Impression: No acute abnormality evident. 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
[2024-09-20 11:30] LABS: Hematocrit 46.6 % (42.0-52.0); Hemoglobin 15.4 g/dL (14.0-18.0); Mean Corpuscular Hemoglobin 31.3 pg (26-34); Mean Corpuscular Volume 94.7 fl (80-100); Mean Platelet Volume 9.5 fl (7.4-10.4); Platelet Count Result 249 k/mm3 (150-375); Red Blood Count 4.92 M/mm3 (4.6-6.20)
[2024-09-20 11:51] LABS: Hemoglobin A1C 5.8 % (<5.7)
[2024-09-20 11:56] LABS: Alanine Aminotransferase 14 U/L (6-50); Albumin Level 4.5 g/dL (3.5-5.1); Alkaline Phosphatase 69 U/L (38-126); Anion Gap 10 mmol/L (4-12); Aspartate Amino Transferase 37 U/L (17-59); Bilirubin,Total 0.5 mg/dL (0.2-1.3); Blood Urea Nitrogen 11 mg/dL (9-20); Calcium 9.1 mg/dL (8.4-10.2); Carbon Dioxide 27 mmol/L (22-30); Chloride 106 mmol/L (98-107); Cholesterol 174 mg/dL (0-200); Estimated Glomerular Filt Rate > 60; Glucose 115 mg/dL (65-110); HDL Direct 59 mg/dL; Potassium 4.1 mmol/L (3.4-5.0); Sodium 143 mmol/L (137-145); Triglycerides 74 mg/dL (<150)
[2024-09-20 12:08] LABS: Add Urine Microscopic? NO; Appearance Urine Clear (Clear); Bilirubin Urine Negative (Negative); Blood Urine Negative (Negative); Color Urine Yellow (Yellow); Glucose Urine UA Negative (Negative); Ketones Urine Negative (Negative); Leukocyte Esterase Ur Negative LEU/UL (Negative); Nitrate Urine Negative (Negative); Protein Urine Negative (Negative); Specific Grav Ur 1.012 (1.001-1.035); Urobilinogen Urine 0.2 mg/dL (<2.0)
[2024-09-20 12:08] LABS: LDL Cholesterol Direct 75 mg/dL
[2024-09-20 12:32] LABS: Thyroid Stimulating Hormone 0.768 uIU/mL (0.465-4.680)
[2024-09-20 13:08] LABS: Folic Acid 13.3 ng/mL (2.76->20)
== END 2024-09-20 11:07 | disposition home or self-care (01) ==
PROVIDERS: PCP Family Medicine; Visit Provider Physician Assistant
DX: M19.012 Primary osteoarthritis, left shoulder (principal); R35.1 Nocturia; Z12.5 Encounter for screening for malignant neoplasm of prostate; Z00.00 Encounter for general adult medical examination without abnormal findings; I10 Essential (primary) hypertension; R73.01 Impaired fasting glucose; R20.0 Anesthesia of skin
CPT/HCPCS: 36415; 73030; 80053; 80061; 81003; 82607; 82746; 83036; 84153; 84443; 85027

== ENCOUNTER 2025-02-27 09:58 | Outpatient (CLI) | payer OTHER, SELFPAY ==
[2025-02-27 11:43] LABS: Alanine Aminotransferase 12 U/L (6-50); Albumin Level 4.4 g/dL (3.5-5.1); Alkaline Phosphatase 63 U/L (38-126); Anion Gap 7 mmol/L (4-12); Aspartate Amino Transferase 35 U/L (17-59); Bilirubin,Total 0.6 mg/dL (0.2-1.3); Blood Urea Nitrogen 15 mg/dL (9-20); Calcium 9.4 mg/dL (8.4-10.2); Carbon Dioxide 31 mmol/L (22-30); Chloride 99 mmol/L (98-107); Estimated Glomerular Filt Rate > 60; Glucose 103 mg/dL (65-110); Potassium 4.6 mmol/L (3.4-5.0); Sodium 137 mmol/L (137-145); Total Protein 8.5 g/dL (6.3-8.2)
[2025-02-27 12:30] LABS: Prostate Specific Antigen 2.3 ng/mL (< OR = 4.0)
[2025-02-27 12:36] LABS: Hemoglobin A1C 5.9 % (<5.7)
== END 2025-02-27 09:59 | disposition home or self-care (01) ==
LOC: ANHLAB 10:06
PROVIDERS: PCP Family Medicine; Visit Provider Family Medicine
DX: R73.01 Impaired fasting glucose (principal); R97.20 Elevated prostate specific antigen [PSA]; R35.1 Nocturia; I10 Essential (primary) hypertension
CPT/HCPCS: 36415; 80053; 83036; 84153